=== PATIENT | female | born 1980 | race Caucasian/White ===

== ENCOUNTER 2016-07-06 07:02 | Inpatient (IN) | payer SELFPAY ==
[~2016-07-06] VITALS: Ht 175.3 cm; Wt 67.2 kg
[2016-07-06] VITALS (11 sets, daily range): BP systolic 88–129; BP diastolic 53–92; PULSE 60–74; RESP 14–20; TEMP 98.1–98.6; O2SAT 98–100
[~2016-07-06 07:02] MED LIST: BACT800T5 PO; PERM5CRE TOPICAL
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
[2016-07-06 07:49] LABS: AUTOMATED NEUTROPHIL # 9.3 TH/MM3 (1.8-7.7); BASOPHIL % 0.3 % (0.0-2.0); EOSINOPHIL # 0.1 TH/MM3 (0-0.4); EOSINOPHIL % 0.9 % (0.0-4.0); HEMATOCRIT 39.9 % (35.0-46.0); HEMO FLAGS DIFF FINAL; LYMPH % 10.8 % (9.0-44.0); LYMPHOCYTE # 1.2 TH/MM3 (1.0-4.8); MEAN CORPUSCULAR HEMOGLOBIN 29.1 PG (27.0-34.0); MEAN CORPUSCULAR HGB CONC 34.7 % (32.0-36.0); MONO % 4.7 % (0.0-8.0); NEUT % 83.3 % (16.0-70.0); PLATELET COUNT 206 TH/MM3 (150-450); RED BLOOD COUNT 4.75 MIL/MM3 (4.00-5.30); RED CELL DISTRIBUTION WIDTH 13.3 % (11.6-17.2); WHITE BLOOD COUNT 11.2 TH/MM3 (4.0-11.0)
[2016-07-06 08:10] LABS: ANION GAP 8 MEQ/L (5-15); BICARBONATE 25.4 MEQ/L (21.0-32.0); BLOOD UREA NITROGEN 14 MG/DL (7-18); CHLORIDE 104 MEQ/L (98-107); GLOMERULAR FILTRATION RATE 77 ML/MIN (>89); POTASSIUM 4.2 MEQ/L (3.5-5.1); SODIUM (NA) 137 MEQ/L (136-145)
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
[2016-07-06] MEDS ORDERED: LIDOCAINE 1%/EPINEPHrine 1:100,000 SOLN 20 ML VIAL INFIL ONE (09:15)
[2016-07-06] MEDS ORDERED: SODIUM CHLORIDE 0.9% FLUSH 10 ML FLUSH IV FLUSH PRN (09:45)
[2016-07-06] MEDS ORDERED: ONDANSETRON HCL 4 MG/2 ML VIAL IV PRN (09:45)
[2016-07-06] MEDS ORDERED: SENNOSIDES 8.6 MG TAB PO PRN (09:45)
[2016-07-06] MEDS ORDERED: ceFAZolin 2 GM PREMIX 50 ML IV ONE (09:45)
[2016-07-06] MEDS ORDERED: CHLORHEXIDINE GLUCONATE 2 % 1 PACK (2 CLOTHS) TOP PRN (09:45)
[2016-07-06] MEDS ORDERED: LABETALOL HCL 100 MG/20 ML VIAL IV PUSH PRN (09:45)
[2016-07-06] MEDS ORDERED: RESP: ALBUTEROL 2.5 MG/3 ML NEB (PRN) INH (09:45)
[2016-07-06] MEDS ORDERED: hydrALAZINE HCL 20 MG/ML VIAL IV PUSH PRN (09:45)
[2016-07-06] MEDS ORDERED: NITROGLYCERIN 2% OINT 1 GM PACKET TOPICAL PRN (09:45)
[2016-07-06] MEDS ORDERED: MISCELLANEOUS NURSING INFORMATION XX SCH (09:45)
[2016-07-06 09:57] LABS: BETA HCG QUANT LESS THAN 1 MIU/ML (0-5)
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
[2016-07-06] MEDS ORDERED: CLINDAMYCIN INJ 600 MG in SODIUM CHLORIDE 0.9% INJ 100 ML IV SCH (10:00)
[2016-07-06] MEDS ORDERED: DEXTROSE 50% IN WATER 50 ML VIAL(D50) IV PUSH PRN (10:00)
[2016-07-06] MEDS ORDERED: GLUCAGON 1 MG/ML VIAL OTHER PRN (10:00)
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
[2016-07-06 10:35] LABS: APTT (PATIENT) 30.1 SEC (24.3-30.1); PROTHROMBIN TIME - PATIENT 10.6 SEC (9.8-11.6)
[2016-07-06 10:37] LABS: MAGNESIUM 1.8 MG/DL (1.5-2.5)
[2016-07-06] MEDS: SODIUM CHLOR 0.9% 1000 ML INJ 1,000 ML IV SCH ×2 (11:28→20:42)
[2016-07-06] MEDS: INSULIN NovoLIN REGULAR SUPPLEMENTAL SCALE SQ SCH ×3 (12:00→23:12)
[2016-07-06] MEDS: ARTIFICIAL TEARS OPTH SOLN 15 ML BTL EACH EYE SCH ×3 (12:39→16:41)
[2016-07-06] MEDS: CLINDAMYCIN INJ 600 MG in SODIUM CHLORIDE 0.9% INJ 100 ML IV SCH ×2 (13:09→20:41)
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
[2016-07-06] MEDS ORDERED: SODIUM CHLOR 0.9% 1000 ML INJ 1,000 ML IV ONE (16:15)
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
[2016-07-06] MEDS: MORPHINE SULFATE 4 MG/ML INJ IV PRN ×2 (20:42→22:54)
[2016-07-06] MEDS ORDERED: DOCUSATE SODIUM 100 MG CAP PO SCH (21:00)
[2016-07-06] MEDS ORDERED: SODIUM CHLORIDE 0.9% FLUSH 10 ML FLUSH IV FLUSH SCH (21:00)
[2016-07-07] VITALS: BP 103/68; PULSE 68; RESP 24; TEMP 99; O2SAT 100
[2016-07-07 02:00] VITALS: PULSE 72
[2016-07-07] MEDS ORDERED: HYDROmorphone HCL PF 1 MG/ML VIAL ONE (02:53)
[2016-07-07] MEDS ORDERED: CHLORHEXIDINE GLUCONATE 2 % 1 PACK (2 CLOTHS) TOP SCH (04:00)
[2016-07-07] MEDS ORDERED: PANTOPRAZOLE SODIUM 40 MG VIAL IV SCH (09:00)
== END 2016-07-07 03:24 | disposition left against medical advice (07) | DRG 84 ==
LOC: NEPC 07:02 → NEDA 09:12 → N03B 12:23
PROVIDERS: ADMIT Surgery; ATTEND Surgery
PROC: 0HQ1XZZ Repair Face Skin, External Approach (ICD-10-PCS; principal; 2016-07-06)
PROC: 0HQ0XZZ Repair Scalp Skin, External Approach (ICD-10-PCS; 2016-07-06)
DX: S06.4X9A Epidural hemorrhage with loss of consciousness of unspecified duration, initial encounter (principal); S02.402A Zygomatic fracture, unspecified side, initial encounter for closed fracture; S02.19XA Other fracture of base of skull, initial encounter for closed fracture; Y08.09XA Assault by strike by other specified type of sport equipment, initial encounter; Y99.9 Unspecified external cause status; Z86.14 Personal history of Methicillin resistant Staphylococcus aureus infection; F17.210 Nicotine dependence, cigarettes, uncomplicated; F12.90 Cannabis use, unspecified, uncomplicated; R40.2410 Glasgow coma scale score 13-15, unspecified time; Z98.82 Breast implant status
CPT/HCPCS: 12004; 12011; 70450; 70486; 71010; 72125; 76937; 80048; 80307; 82948; 83735; 84100; 84702; 85025; 85384; 85610; 85730; 87641; J0690; J1170; J2270; J7030